=== PATIENT | male | born 1940 | race Caucasian/White ===

== ENCOUNTER 2019-09-30 16:45 | Inpatient (IN) | payer OTHER ==
[2019-09-30] MEDS ORDERED: NA CHLORIDE 0.9% 1,000 ML ONE ×2 (17:08→18:14)
[2019-09-30] MEDS ORDERED: PIPER/TAZO/NS 3.375gm 3.375 GM/100 ML BAG ONE (17:08)
[2019-09-30 17:25] LABS: Absolute Lymphocytes (CBC) 0.6 K/uL (0.7-4.9); Basophils % 0.3 % (0-1.3); Hematocrit 53.7 % (39.6-49.0); Lymphocytes % 4.6 % (15.3-44.8); MPV 8.7 fL (7.6-11.3); RBC Red Blood Cell Count 5.81 M/uL (4.33-5.43)
[2019-09-30 17:30] LABS: Urine Blood NEGATIVE (NEG); Urine Glucose NEGATIVE (NEG); Urine Protein NEGATIVE (NEG); Urine Specific Gravity 1.015 (1.005-1.030)
[2019-09-30 17:35] LABS: Arterial Blood Carboxyhemoglob 0.8 % (0-1.5); Blood Gas Oxyhemoglobin 90.4 % (94-97)
[2019-09-30 17:38] LABS: Protime INR 1.48
[2019-09-30 17:54] LABS: Urine Bacteria LOADED /HPF (NONE SEEN); Urine Culture Reflex Order NOT NEEDED; Urine RBC NONE SEEN /HPF (NONE SEEN)
[2019-09-30 18:06] LABS: Albumin 2.6 g/dL (3.4-5.0); Bilirubin Direct 0.4 mg/dL (0-0.2); Bilirubin Total 0.7 mg/dL (0.2-1.0); CKMB Creatine Kinase MB 5.5 ng/mL (0.3-3.6); Phosphorus 5.9 mg/dL (2.5-4.9); Troponin (Emerg Dept Use Only) 0.05 ng/mL (0.0-0.045); Uric Acid 11.9 mg/dL (3.5-7.2)
[2019-09-30 18:10] LABS: Potassium 5.9 mmol/L (3.5-5.1)
[2019-09-30] MEDS ORDERED: ALBUTEROL 2.5 MG/3 ML NEB SOL ONE (18:14)
--- NOTE | 2019-09-30 18:24 | RAD REPORT ---
EXAM DESCRIPTION: CT - Head Brain Wo Cont - 09/30/2019 6:16 pm CLINICAL HISTORY: Declining state, altered mental status COMPARISON: None. TECHNIQUE: Axial 5 mm thick images of the head were obtained without IV contrast. All CT scans are performed using dose optimization technique as appropriate and may include automated exposure control or mA/KV adjustment according to patient size. FINDINGS: No intracranial hemorrhage, mass, edema or shift of mid-line structures. No acute infarcti on changes seen. Moderate severity atrophy and chronic ischemic changes are present. Ventricles are i n proportion to volume loss. Artifact is present from cochlear device or similar neurointerventional device. Arterial calcifications are present. The mastoid air cells are clear. Postsurgical changes ar e noted to the left side mastoid air cells. No acute bony findings. IMPRESSION: Negative non-contrast CT head examination for acute intracranial finding. Moderate atrophy and chronic ischemic change.
--- NOTE | 2019-09-30 18:29 | RAD REPORT ---
EXAM DESCRIPTION: CT - Chest Abd Pelvis Wo Con - 09/30/2019 6:16 pm CLINICAL HISTORY: fall 3 months ago COMPARISON: No comparisons TECHNIQUE: During dynamic enhancement using 100 milliliters nonionic IV contrast, axial 5 millimeter thick images of the chest, abdomen and pelvis were obtained. Biphasic technique was utilized through the abdomen. No oral contrast. All CT scans are performed using dose optimization technique as appropriate and may include automated exposure control or mA/KV adjustment according to patient size. FINDINGS: A 2.2 centimeter spiculated mass is present in the posterior left apex. Atelectasis is pre sent along the posterior aspect of the left upper lobe. Bilateral posteromedial lung parenchymal opac ification present from atelectasis and/ or infiltrate. No pneumothorax or pleural effusion. No chest wall mass or abnormal axillary lymphadenopathy seen. Mediastinal and hilar regions show no mass or lymphadenopathy. No cardiomegaly. Coronary artery calcifications are present. Aortic calcifications are present. In the posterior right lobe of the liver a rounded -2009 centimeter low-density mass is present. Ma ss is not fully assessed in the absence of contrast. A malignancy would be the primary consideration given the overall patient ability. A giant hemangioma would be possible. No other focal liver lesions seen. Spleen and pancreas show no suspicious findings. Gallbladder and biliary tree are normal. Symmetric renal function is seen with no hydronephrosis, mass or other significant finding. Minimall y complex right renal cyst is present. Right adrenal gland is normal. An enlarged lobulated left adre nal gland is present 3.5 cm in size. Urinary bladder is contracted around a Villanueva catheter. No dilated bowel loops or focal ball bowel wall thickening. No free air, free fluid or inflammatory stranding. No hernia, mass or bulky lymphadenopathy. No significant bone or vascular finding. Prominent bony degenerative changes are present. IMPRESSION: Approximately -2009 centimeter rounded mass filling posterior right lobe liver. Malign juan carlos is the diagnosis of exclusion. A giant hemangioma is possible. No prior imaging is available. Posteromedial lower lung field bilateral opacification from infiltrate and/ or atelectasis. A spiculated 2.2 centimeter mass is present in the posterior left apex. No abnormal mediastinal, hilar, abdominal or pelvic lymphadenopathy. Enlarged lobulated left adrenal gland. CT abdomen and pelvis imaging shows no significant or suspicious finding.
[2019-09-30 19:12] LABS: Blood Morphology Comment NOT SEEN (NOT SEEN); Platelet Estimate ADEQ
--- NOTE | 2019-09-30 19:20 | RAD REPORT ---
EXAM DESCRIPTION: RAD - Chest Single View - 09/30/2019 5:32 pm CLINICAL HISTORY: Shortness of breath COMPARISON: None. TECHNIQUE: AP portable chest image was obtained 1728 hours . FINDINGS: Fibrotic lung changes are evident. Skin fold artifact overlies the lateral right chest. Bi lateral medial lung base opacification is present. This could be infiltrate or more likely atelectasi s. Failure and volume overload are not suspected. Defibrillator is in place. Heart and vasculature ar e normal. No measurable pleural effusion and no pneumothorax. No acute bony abnormality seen. No acut e aortic findings suspected. IMPRESSION: Bilateral medial lung base opacification favored to be atelectasis.
[2019-09-30] MEDS ORDERED: ONDANSETRON 4 MG/2 ML VIAL IV PRN (19:54)
[2019-09-30] MEDS ORDERED: ACETAMINOPHEN 500 MG TAB PO PRN (19:54)
--- NOTE | 2019-09-30 20:10 | ER ---
[facility] Name: Leroy Santiago Age: 78 yrs Sex: Male : 1940 Arrival Date: 09/30/2019 Time: 16:48 Bed 25 Private MD: Diagnosis: Acute kidney failure;Urinary tract infection, site not specified;Liver disorders in diseases classified elsewhere-Mass;Elevated white blood cell count Presentation: 09/30 16:50 Presenting complaint: EMS states: PATIENT WAS JUST RECENTLY ADMITTED IN THE FACILITY rv AND IS NOT EATING OR DRINKING FOR FOUR DAYS NOW. WITH ABNORMAL LABS. Transition of care: [facility]. Onset of symptoms was September 25, 2019 at 08:00. Risk Assessment: Do you want to hurt yourself or someone else? Patient reports no desire to harm self or others. Initial Sepsis Screen: Does the patient meet any 2 criteria? Altered Mental Status. No. Patient's initial sepsis screen is negative. Care prior to arrival: None. 16:50 Method Of Arrival: EMS: [facility] rv 16:50 Acuity: MIKE 2 rv 17:46 Initial Sepsis Screen: Does the patient have a suspected source of infection?. rv Historical: - Allergies: 17:41 Sulfa (Sulfonamide Antibiotics); rv - PMHx: 17:41 Hypertension; Anemia; BPH; GERD; PRIMARY RESPIRATORY TUBERCULOSIS; rv - PSHx: 17:41 PACEMAKER PLACEMENT; rv - Immunization history:: Adult Immunizations up to date. - Social history:: Smoking status: Patient/guardian denies using tobacco. - Ebola Screening: : No symptoms or risks identified at this time. Screenin:44 Abuse screen: Denies threats or abuse. Denies injuries from another. Nutritional rv screening: No deficits noted. Tuberculosis screening: No symptoms or risk factors identified. Fall Risk None identified. Assessment: 17:41 General: Appears ill, Behavior is quiet. Pain: Complains of pain in right leg. Neuro: rv Level of Consciousness is awake, Oriented to none. Cardiovascular: Patient's skin is warm and dry. Cardiovascular: Rhythm is sinus rhythm. Respiratory: Airway is patent Respiratory effort is shallow. GI: Parent/caregiver reports the patient having anorexia. Derm: Skin with poor turgor. Musculoskeletal: Range of motion: limited in left hip, left knee, right hip and right knee. 19:33 Reassessment: failed attempts to get blood specimen by labor arbitrator hearing office. rv 19:34 Reassessment: Myra talked to the family,. updated on the results of diagnostics and rv plan of care. Vital Signs: 17:29 BP 111 / 90; Pulse 70; Resp 19; Temp 100.1(R); Pulse Ox 95% 6 lpm ; Weight 90.72 kg; rv 17:56 BP 112 / 57; Pulse 60; Resp 17; Temp 99.5(C); Pulse Ox 100% on 5 lpm NC; rv 18:34 BP 112 / 52; Pulse 60; Resp 16; Temp 98.2(C); Pulse Ox 98% 5 lpm ; rv 19:00 BP 97 / 67; Pulse 60; Resp 17; Pulse Ox 95% on 5 lpm NC; rv 19:37 BP 108 / 72; Pulse 62; Resp 17; Temp 98.1; Pulse Ox 95% on Nebulizer Mask; rv 19:41 Pulse Ox 97% on Nebulizer Mask; rv ED Course: 16:48 Patient arrived in ED. rv 16:51 Myra Moore FNP-C is PHCP. snw 16:51 Ayo Abad MD is Attending Physician. snw 17:00 Initial lab(s) drawn, by oh, sent to lab. Inserted saline lock: 20 gauge in left em antecubital area, using aseptic technique. Blood collected. 17:00 First set of blood cultures drawn by ED staff. rv 17:29 Triage completed. rv 17:34 Chest Single View XRAY In Process Unspecified. EDMS 17:35 Second set of blood cultures drawn. Inserted saline lock: 20 gauge in right wrist, rv using aseptic technique. Blood collected. 17:44 Arm band placed on right wrist. Patient placed in the treatment room, Patient notified rv of wait time. 17:46 Patient has correct armband on for positive identification. Bed in low position. Call rv light in reach. Side rails up X2. Adult w/ patient. surveillance system monitor on. Pulse ox on. NIBP on. VÁSQUEZ TEMP. 17:47 Thien Handy, RN is Primary Nurse. rv 18:17 CT Head Brain wo Cont In Process Unspecified. EDMS 18:17 CT Chest Abdomen Pelvis W/O Contrast In Process Unspecified. EDMS 19:24 Ayo Armando MD is Hospitalizing Provider. snw Administered Medications: 17:05 Drug: NS 0.9% 1000 ml Route: IV; Rate: 125 ml/hr; Site: left antecubital; em 19:44 Follow up: IV Status: Infusion continued upon admission rv 17:47 Drug: Zosyn 3.375 grams {Note: k.} Route: IVPB; Infused Over: 60 mins; Site: left rv antecubital; 19:43 Follow up: IV Status: Completed infusion rv 18:34 Drug: Albuterol 2.5 mg Route: Inhalation; rv 18:35 Drug: NS 0.9% 1000 ml Route: IV; Rate: 1 bolus; Site: left antecubital; rv 19:43 Follow up: IV Status: Completed infusion; IV Intake: 1000ml rv 19:00 Drug: Albuterol 2.5 mg Route: Inhalation; rv 19:30 Drug: Albuterol 2.5 mg Route: Inhalation; rv Intake: 19:43 IV: 1000ml; Total: 1000ml. rv Outcome: 19:27 Decision to Hospitalize by Provider. snw 21:38 Patient left the ED. mw Signatures: Dispatcher [employer] Zara Cortés RN RN Myra Moore, PET SUPPLIES SALESPERSON-C PET SUPPLIES SALESPERSON-Yann Alexandre, RN RN Thien Handy RN RN rv
--- NOTE | 2019-09-30 20:11 | EDPHYS ---
Physician Documentation [facility] Name: Leroy Santiago Age: 78 yrs Sex: Male : 1940 Arrival Date: 09/30/2019 Time: 16:48 Bed 25 Private MD: ED Physician Ayo Abad HPI: 09/30 17:25 This 78 yrs old Male presents to ER via Unassigned with complaints of snw declining state. 17:25 Pt recently moved to different [place] second to deconditioning and decline at previous [place] snw since .. 17:54 Onset: The symptoms/episode began/occurred gradually, 3 month(s) ago, and became worse snw 1 week(s) ago. Severity of symptoms: At their worst the symptoms were moderate. The patient has not experienced similar symptoms in the past. seen at [facility] per MD s/p change in NH last week, labs done yesterday, WBC elevated, Creatinine elevated. Pt "in position" for a few weeks per family member observation. Historical: - Allergies: 17:41 Sulfa (Sulfonamide Antibiotics); rv - PMHx: 17:41 Hypertension; Anemia; BPH; GERD; PRIMARY RESPIRATORY TUBERCULOSIS; rv - PSHx: 17:41 PACEMAKER PLACEMENT; rv - Immunization history:: Adult Immunizations up to date. - Social history:: Smoking status: Patient/guardian denies using tobacco. - Ebola Screening: : No symptoms or risks identified at this time. ROS: 17:57 Eyes: Negative for injury, pain, redness, and discharge, ENT: Negative for injury, snw pain, and discharge, Neck: Negative for injury, pain, and swelling. 17:57 Respiratory: Negative for shortness of breath, cough, wheezing, and pleuritic chest pain, Abdomen/GI: Negative for abdominal pain, nausea, vomiting, diarrhea, and constipation, Back: Negative for injury and pain, : Negative for injury, bleeding, discharge, and swelling, MS/Extremity: Negative for injury and deformity, Skin: Negative for injury, rash, and discoloration. 17:57 Constitutional: Positive for body aches, malaise, poor PO intake. 17:57 Cardiovascular: Positive for pacemaker. 17:57 Neuro: Positive for declining state. Exam: 17:58 Head/Face: Normocephalic, atraumatic. Eyes: Pupils equal round and reactive to light, snw extra-ocular motions intact. Lids and lashes normal. Conjunctiva and sclera are non-icteric and not injected. Cornea within normal limits. Periorbital areas with no swelling, redness, or edema. 17:58 Neck: Trachea midline, no thyromegaly or masses palpated, and no cervical lymphadenopathy. Supple, full range of motion without nuchal rigidity, or vertebral point tenderness. No Meningismus. Chest/axilla: Normal chest wall appearance and motion. Nontender with no deformity. No lesions are appreciated. 17:58 Abdomen/GI: Soft, non-tender, with normal bowel sounds. No distension or tympany. No guarding or rebound. No evidence of tenderness throughout. Back: No spinal tenderness. No costovertebral tenderness. Full range of motion. Skin: Warm, dry with normal turgor. Normal color with no rashes, no lesions, and no evidence of cellulitis. MS/ Extremity: Pulses equal, no cyanosis. Neurovascular intact. Full, normal range of motion. 17:58 Constitutional: The patient appears awake, frail. 17:58 ENT: Mouth: Oral mucosa: dry, Voice: not speaking at this time. 17:58 Cardiovascular: Rate: normal, Heart sounds: normal, paced rhythm. 17:58 Respiratory: Respirations: shallow respirations, that is moderate, Breath sounds: decreased breath sounds, that are moderate, Spo2 on 2L O2 per NC, 72%, increased O2 to 5L, ABG ordered. 17:58 Neuro: Orientation: to person, Mentation: unable to follow commands, Memory: unable to test, Motor: Gait: not tested. seizure activity, is not displayed by the patient. Vital Signs: 17:29 BP 111 / 90; Pulse 70; Resp 19; Temp 100.1(R); Pulse Ox 95% 6 lpm ; Weight 90.72 kg; rv 17:56 BP 112 / 57; Pulse 60; Resp 17; Temp 99.5(C); Pulse Ox 100% on 5 lpm NC; rv 18:34 BP 112 / 52; Pulse 60; Resp 16; Temp 98.2(C); Pulse Ox 98% 5 lpm ; rv 19:00 BP 97 / 67; Pulse 60; Resp 17; Pulse Ox 95% on 5 lpm NC; rv 19:37 BP 108 / 72; Pulse 62; Resp 17; Temp 98.1; Pulse Ox 95% on Nebulizer Mask; rv 19:41 Pulse Ox 97% on Nebulizer Mask; rv MDM: 17:03 Patient medically screened. snw 19:22 Data reviewed: vital signs, nurses notes. Data interpreted: Pulse oximetry: on 2L(s) snw per nasal canula, is 71 %. Interpretation: hypoxia. Plan: O2 by NC applied. Arterial blood gas: pH: 7.388, PO2: 67.3, PCO2: 35.3, HCO3: 20.8, Oxygen saturation: 92, Oxygen: 5L(s) per nasal canula. Counseling: I had a detailed discussion with the patient and/or guardian regarding: the historical points, exam findings, and any diagnostic results supporting the discharge/admit diagnosis, lab results, radiology results, the need for further work-up and treatment in the hospital. Physician consultation: Ayo Armando MD was called at 19:24, was contacted at 19:24, regarding admission, to the telemetry unit. 09/30 17:02 Order name: ABG; Complete Time: 17:49 snw 09/30 17:02 Order name: D-Dimer; Complete Time: 17:49 snw 09/30 17:02 Order name: Urine Culture snw 09/30 17:02 Order name: T\\T\\S; Complete Time: 18:26 snw 09/30 17:02 Order name: Basic Metabolic Panel; Complete Time: 18:26 snw 09/30 17:02 Order name: Blood Culture Adult (2) snw 09/30 17:02 Order name: CBC with Diff; Complete Time: 19:15 snw 09/30 17:02 Order name: Ckmb; Complete Time: 18:26 snw 09/30 17:02 Order name: CPK; Complete Time: 18:26 snw 09/30 17:02 Order name: Lactate; Complete Time: 17:52 snw 09/30 17:02 Order name: LFT's; Complete Time: 18:26 snw 09/30 17:02 Order name: Lipase; Complete Time: 18:26 snw 09/30 17:02 Order name: Procalcitonin; Complete Time: 18:26 snw 09/30 17:02 Order name: Protime (+inr); Complete Time: 17:49 snw 09/30 17:02 Order name: Ptt, Activated; Complete Time: 17:49 snw 09/30 17:02 Order name: Troponin (emerg Dept Use Only); Complete Time: 18:26 snw 09/30 17:02 Order name: Urine Microscopic Only; Complete Time: 18:02 snw 09/30 17:02 Order name: Uric Acid; Complete Time: 18:26 snw 09/30 17:02 Order name: LDH; Complete Time: 18:26 snw 09/30 17:02 Order name: Phosphorus; Complete Time: 18:26 snw 09/30 17:07 Order name: Hepatitis Panel snw 09/30 17:24 Order name: Urine Dipstick--Ancillary (enter results); Complete Time: 17:45 09/30 17:28 Order name: Glucose, Ancillary Testing; Complete Time: 17:45 EDMS 09/30 18:03 Order name: ABO/RH no charge; Complete Time: 18:26 EDVT 09/30 19:12 Order name: Manual Differential; Complete Time: 19:15 EDMS 09/30 20:03 Order name: Urinalysis EDVT 09/30 20:03 Order name: Basic Metabolic Panel EDVT 09/30 20:03 Order name: Basic Metabolic Panel EDVT 09/30 20:03 Order name: Comprehensive Metabolic Panel EDVT 09/30 20:03 Order name: Comprehensive Metabolic Panel EDVT 09/30 17:02 Order name: Chest Single View XRAY; Complete Time: 19:28 snw 09/30 17:02 Order name: Accucheck; Complete Time: 17:24 snw 09/30 17:02 Order name: Cardiac monitoring; Complete Time: 17:24 snw 09/30 17:02 Order name: EKG - Nurse/Tech; Complete Time: 17:24 snw 09/30 17:07 Order name: CT Head Brain wo Cont; Complete Time: 18:36 snw 09/30 17:08 Order name: CT Chest Abdomen Pelvis W/O Contrast; Complete Time: 18:36 snw 09/30 20:02 Order name: CONS Physician Consult EDMS 09/30 20:03 Order name: Renal EDMS 09/30 20:03 Order name: Creatine Phosphokinase EDMS 09/30 20:03 Order name: Creatine Phosphokinase EDMS 09/30 20:03 Order name: Creatine Phosphokinase EDMS 09/30 20:03 Order name: Creatine Phosphokinase EDMS 09/30 20:03 Order name: Lactate EDMS 09/30 20:03 Order name: Lactate EDMS 09/30 20:03 Order name: Lipid Profile EDMS 09/30 20:03 Order name: Lipid Profile EDMS 09/30 20:03 Order name: Magnesium EDMS 09/30 20:03 Order name: Magnesium EDMS 09/30 20:03 Order name: Phosphorus EDMS 09/30 20:03 Order name: Phosphorus EDMS 09/30 20:03 Order name: NT PRO-BNP EDMS 09/30 20:03 Order name: NT PRO-BNP EDMS 09/30 20:03 Order name: Troponin I EDMS 09/30 20:03 Order name: Troponin I EDMS 09/30 20:04 Order name: Troponin I EDMS 09/30 20:04 Order name: Chem 7; Complete Time: 20:41 snw 09/30 20:04 Order name: Troponin I EDMS 09/30 20:09 Order name: Renal Ultrasound-Complete EDMS 09/30 17:02 Order name: IV Saline Lock - Large Bore; Complete Time: 17:24 snw 09/30 17:02 Order name: Labs collected and sent; Complete Time: 17:24 snw 09/30 17:02 Order name: O2 Per Protocol; Complete Time: 17:24 snw 09/30 17:02 Order name: O2 Sat Monitoring; Complete Time: 17:24 snw 09/30 17:02 Order name: Urine Dipstick-Ancillary (obtain specimen); Complete Time: 17:23 snw 09/30 17:02 Order name: Villanueva: criticore; Complete Time: 17:23 snw 09/30 19:37 Order name: Misc. Order: repeat Chem 7 post NS bolus and nebs x 3; Complete Time: 21:22 snw Administered Medications: 17:05 Drug: NS 0.9% 1000 ml Route: IV; Rate: 125 ml/hr; Site: left antecubital; em 19:44 Follow up: IV Status: Infusion continued upon admission rv 17:47 Drug: Zosyn 3.375 grams {Note: k.} Route: IVPB; Infused Over: 60 mins; Site: left rv antecubital; 19:43 Follow up: IV Status: Completed infusion rv 18:34 Drug: Albuterol 2.5 mg Route: Inhalation; rv 18:35 Drug: NS 0.9% 1000 ml Route: IV; Rate: 1 bolus; Site: left antecubital; rv 19:43 Follow up: IV Status: Completed infusion; IV Intake: 1000ml rv 19:00 Drug: Albuterol 2.5 mg Route: Inhalation; rv 19:30 Drug: Albuterol 2.5 mg Route: Inhalation; rv Disposition: 09/30/19 19:27 Hospitalization ordered by Ayo Armando for Inpatient Admission. Preliminary diagnosis are Acute kidney failure, Urinary tract infection, site not specified, Liver disorders in diseases classified elsewhere - Mass, Elevated white blood cell count. - Bed requested for Intensive Care Unit. - Status is Inpatient Admission. mw - Condition is Fair. - Problem is new. - Symptoms are unchanged. UTI on Admission? Yes Addendum: 10/11/2019 21:35 Co-signature as Attending Physician, Ayo Abad MD. m a2 Signatures: Dispatcher [employer] EDVT aZra Ruelas RN RN mw Therrien, Shelly, MONUMENT STONECUTTER-C MONUMENT STONECUTTER-Csnw Yann Britt RN RN Tai Taylor, MONUMENT STONECUTTER-C MONUMENT STONECUTTER-Cla1 Ayo Abad MD MD [facility] Thien Handy RN RN rv Corrections: (The following items were deleted from the chart) 09/30 21:00 19:27 Hospitalization Ordered by Ayo Armando MD for Inpatient Admission. Preliminary mw diagnosis is Acute kidney failure; Urinary tract infection, site not specified; Liver disorders in diseases classified elsewhere - Mass; Elevated white blood cell count. Bed requested for Telemetry/MedSurg (Inpatient). Status is Inpatient Admission. Condition is Fair. Problem is new. Symptoms are unchanged. UTI on Admission? Yes. snw 21:28 21:00 09/30/2019 19:27 Hospitalization Ordered by Ayo Armando MD for Inpatient la1 Admission. Preliminary diagnosis is Acute kidney failure; Urinary tract infection, site not specified; Liver disorders in diseases classified elsewhere - Mass; Elevated white blood cell count. Bed requested for Intensive Care Unit. Status is Inpatient Admission. Condition is Fair. Problem is new. Symptoms are unchanged. UTI on Admission? Yes. mw 21:38 21:28 09/30/2019 19:27 Hospitalization Ordered by Ayo Armando MD for Inpatient Admission. Preliminary diagnosis is Acute kidney failure; Urinary tract infection, site not specified; Liver disorders in diseases classified elsewhere - Mass; Elevated white blood cell count. Bed requested for Intensive Care Unit. Status is Inpatient Admission. Condition is Fair. Problem is new. Symptoms are unchanged. UTI on Admission? Yes. la1
[2019-09-30 20:39] LABS: Potassium 5.6 mmol/L (3.5-5.1)
[2019-09-30] MEDS: NA CHLORIDE 0.9% 250 ML IV SCH (21:00)
[2019-09-30] MEDS: NA CHLORIDE 0.9% 1,000 ML IV SCH (22:42)
[2019-10-01] MEDS: NA CHLORIDE 0.9% 250 ML IV SCH ×2 (02:58→09:00)
[2019-10-01 06:23] LABS: Albumin 2.1 g/dL (3.4-5.0); Bilirubin Total 0.7 mg/dL (0.2-1.0); Potassium 4.9 mmol/L (3.5-5.1); Protein, Total 6.6 g/dL (6.4-8.2); Troponin I 0.05 ng/mL (0.0-0.045)
--- NOTE | 2019-10-01 08:36 | P.CNS ---
Date of Consult: 10/01/19 Reason for Consult: This spiculated mass in the left upper lobe Chief Complaint: Failure to thrive History of Present Illness: Patient is 79 years of age was admitted to the hospital failure to thrive not eating and drinking altered acute on chronic renal failure possible sepsis patient has right-sided hemiplegia has cochlear implants his communicating with the nurses as been eating and drinking Allergies Sulfa (Sulfonamide Antibiotics) Allergy (Verified 09/30/19 22:30) Hives/Rash Home Medications: Allopurinol 100 mg PO DAILY 09/30/19 Amiloride HCl 10 mg PO DAILY 09/30/19 Amiodarone HCl [Pacerone] 100 mg PO BID 09/30/19 Amlodipine [Norvasc] 5 mg PO BEDTIME 09/30/19 Apixaban [Eliquis] 2.5 mg PO BID 09/30/19 Atorvastatin Calcium [Lipitor] 10 mg PO BEDTIME 09/30/19 Furosemide 80 mg PO BID 09/30/19 Gabapentin 300 mg PO DAILY 09/30/19 Gabapentin [Gralise] 600 mg PO BEDTIME 09/30/19 Hydrocodone Bit/Acetaminophen [Hydrocodon-Acetaminophn 10-325] 1 each PO Q8H 10/19 Omeprazole 20 mg PO DAILY 09/30/19 Potassium Chloride 20 meq PO DAILY 09/30/19 Tamsulosin [Flomax] 0.4 mg PO BEDTIME 09/30/19 Tizanidine [Zanaflex] 4 mg PO TID 09/30/19 - Past Medical/Surgical History Diabetic: No -: HTN -: Anemia -: BPH -: Primary TB -: Atrial fibrillation -: Pacemaker/defibrillator -: abd Sx - Family History Father Medical History: Heart disease - Social History Alcohol use: No CD- Drugs: No Caffeine use: No Place of Residence: [facility] Review of Systems is unable to be obtained Physical Examination Temp Pulse Resp BP Pulse Ox 96.6 F L 60 15 94/36 L 97 10/01/19 04:00 10/01/19 04:00 10/01/19 04:00 10/01/19 04:00 10/01/19 04:00 General: Alert, Cachectic, Other (Unable to communicate) Respiratory: Clear to auscultation bilaterally, Diminished Cardiovascular: No edema, Regular rate/rhythm, Normal S1 S2 Gastrointestinal: Normal bowel sounds, Soft and benign Musculoskeletal: No clubbing, No swelling Integumentary: No rashes, No breakdown Laboratory Data (last 24 hrs) 09/30/19 17:00: WBC 12.4 H D, Hgb 17.9, Hct 53.7 H, Plt Count 335 09/30/19 17:00: Sodium 136, Potassium 5.9 H*, BUN 132 H, Creatinine 3.46 H, Glucose 155 H, Uric Acid 11.9 H D, Phosphorus 5.9 H, Total Bilirubin 0.7, AST 120 H, ALT 37, Alkaline Phosphatase 311 H, Lipase 210 09/30/19 17:00: PT 17.2 H, INR 1.48, APTT 29.7 - Problems (1) Altered mental status Current Visit: Yes Status: Acute Plan: Patient is 79 years of age admitted with altered mental status acute on chronic renal failure CT scan the chest does show spiculated lesion in the left upper lobe possible consolidation in the left lower lobe patient has hypoxic for calcitonin level elevated possible mass in the liver 3+ gram-negative rods in the urine probably has cystitis urinary tract infection continue with IV fluids was likely is all prerenal and antibiotics await cultures he is hemodynamically stable not in any respiratory distress renal ultrasound pending Qualifiers: Altered mental status type: stupor Qualified Code(s): R40.1 - Stupor
[2019-10-01] MEDS ORDERED: ENOXAPARIN 30 MG/0.3 ML SQ SCH (09:00)
[2019-10-01] MEDS ORDERED: PANTOPRAZOLE 40MG TABLET PO SCH (09:00)
--- NOTE | 2019-10-01 09:08 | RAD REPORT ---
EXAM DESCRIPTION: RAD - Chest Single View - 10/01/2019 8:47 am CLINICAL HISTORY: Atelectasis, shortness of breath COMPARISON: CT study September 30, portable chest September 30 TECHNIQUE: AP portable chest image was obtained 0827 hours . FINDINGS: No new or progressive right lung field finding. Left base opacification is still present. Patchy stranding in the left midlung field is still present. This is partially obscured by the pacema ker/ defibrillator battery pack. CT showed spiculated nodule posterior left apex. This finding is not well visualized on chest exam. Heart and vasculature are normal. No pneumothorax. No measurable pleural effusion. No acute bony abn ormality seen. No acute aortic findings suspected. IMPRESSION: Mid and lower left lung field opacification is present showing no improvement from prior day CT imaging.
--- NOTE | 2019-10-01 09:34 | P.HP ---
Certification for Inpatient Patient admitted to: Inpatient With expected LOS: >2 Midnights Patient will require the following post-hospital care: None Practitioner: I am a practitioner with admitting privileges, knowledge of patient current condition, hospital course, and medical plan of care. Services: Services provided to patient in accordance with Admission requirements found in Title 42 Section 412.3 of the Code of Federal Regulations Patient History Date of Service: 09/30/19 Reason for admission: Failure to thrive History of Present Illness: Patient is a 79-year-old gentleman who came into the hospital with severe dehydration and acute kidney injury. Patient was recently discharged from the hospital, and according to family over the last 4 days has become more altered. He has had generalized weakness and is not eating anything. They brought him into the emergency room for evaluation. In the ER he has severe uremia and acute kidney injury. Patient was also found have a lung mass as well as a liver mass. Patient will be admitted to the hospital for further evaluation. Allergies Sulfa (Sulfonamide Antibiotics) Allergy (Verified 09/30/19 22:30) Hives/Rash Home Medications: Allopurinol 100 mg PO DAILY 09/30/19 Amiloride HCl 10 mg PO DAILY 09/30/19 Amiodarone HCl [Pacerone] 100 mg PO BID 09/30/19 Amlodipine [Norvasc] 5 mg PO BEDTIME 09/30/19 Apixaban [Eliquis] 2.5 mg PO BID 09/30/19 Atorvastatin Calcium [Lipitor] 10 mg PO BEDTIME 09/30/19 Furosemide 80 mg PO BID 09/30/19 Gabapentin 300 mg PO DAILY 09/30/19 Gabapentin [Gralise] 600 mg PO BEDTIME 09/30/19 Hydrocodone Bit/Acetaminophen [Hydrocodon-Acetaminophn 10-325] 1 each PO Q8H 10/19 Omeprazole 20 mg PO DAILY 09/30/19 Potassium Chloride 20 meq PO DAILY 09/30/19 Tamsulosin [Flomax] 0.4 mg PO BEDTIME 09/30/19 Tizanidine [Zanaflex] 4 mg PO TID 09/30/19 - Past Medical/Surgical History Has patient received pneumonia vaccine in the past: Yes Diabetic: No -: HTN -: Anemia -: BPH -: Primary TB -: Atrial fibrillation -: Pacemaker/defibrillator -: abd Sx - Family History Father Medical History: Heart disease - Social History Smoking Status: Former smoker Alcohol use: No CD- Drugs: No Caffeine use: No Place of Residence: [place] Review of Systems is unable to be obtained Physical Examination - Vital Signs Temperature: 96.6 F Blood Pressure: 94/36 Pulse: 60 Respirations: 15 Pulse Ox (%): 97 - Physical Exam General: Alert, In no apparent distress, Oriented x2 HEENT: Atraumatic, PERRLA, Mucous membr. moist/pink, EOMI, Sclerae nonicteric Neck: Supple, 2+ carotid pulse no bruit, No LAD, Without JVD or thyroid abnormality Respiratory: Diminished, Rhonchi/gurgles Cardiovascular: Regular rate/rhythm, Normal S1 S2, No murmurs Gastrointestinal: Normal bowel sounds, Soft and benign, Non-distended, No tenderness Musculoskeletal: No clubbing, No swelling, No tenderness Integumentary: No rashes Neurological: Normal tone, Sensation intact, Cranial nerves 3-12 intact, Normal affect, Abnormal gait, Abnormal speech, Abnormal strength Lymphatics: No axilla or inguinal lymphadenopathy - Studies Laboratory Data (last 24 hrs) 09/30/19 17:00: WBC 12.4 H D, Hgb 17.9, Hct 53.7 H, Plt Count 335 09/30/19 17:00: Sodium 136, Potassium 5.9 H*, BUN 132 H, Creatinine 3.46 H, Glucose 155 H, Uric Acid 11.9 H D, Phosphorus 5.9 H, Total Bilirubin 0.7, AST 120 H, ALT 37, Alkaline Phosphatase 311 H, Lipase 210 09/30/19 17:00: PT 17.2 H, INR 1.48, APTT 29.7 Assessment & Plan - Problems (Diagnosis) (1) Pneumonia Current Visit: Yes Status: Acute (2) Lung mass Current Visit: Yes Status: Acute (3) Liver mass Current Visit: Yes Status: Acute (4) MARIEL (acute kidney injury) Current Visit: Yes Status: Acute (5) Uremic encephalopathy Current Visit: Yes Status: Acute (6) Altered mental status Current Visit: Yes Status: Acute Qualifiers: Altered mental status type: stupor Qualified Code(s): R40.1 - Stupor - Plan 1. Continue with IV antibiotics 2. Awaiting sputum and blood culture 3. Repeat chest x-ray 4. CT scan reveals lung and liver mass 5. Pulmonary consultation & Nephrology consultation 6. Continue with nebs as needed 7. O2 per protocol 8. Continue with gentle hydration 9. Repeat labs including CBC and renal function in a.m. 10. GI and DVT prophylaxis Discharge Plan: Home Plan to discharge in: Greater than 2 days - Advance Directives Does patient have a Living Will: No Does patient have a Durable POA for Healthcare: No - Code Status/Comfort Care Code Status Assessed: Yes Code Status: Full Code Critical Care: No Time Spent Managing PTS Care (In Minutes): 45
[2019-10-01] MEDS: allopurinoL 100 MG TAB PO SCH (10:10)
[2019-10-01] MEDS: AMIODARONE HCL 200 MG TAB PO SCH ×2 (10:10→20:37)
[2019-10-01] MEDS: GABAPENTIN 300 MG CAP PO SCH ×2 (10:10→20:37)
[2019-10-01] MEDS: APIXABAN 2.5 MG TABLET PO SCH ×2 (10:12→20:38)
[2019-10-01] MEDS: CEFTRIAXONE/SWI 1gm 1 GM/10 ML SYR IV SCH (10:12)
[2019-10-01] MEDS: NA CHLORIDE 0.9% 1,000 ML IV SCH ×2 (10:13→19:44)
--- NOTE | 2019-10-01 12:17 | P.PN ---
Subjective Date of Service: 10/01/19 Primary Care Provider: alf Chief Complaint: Failure to thrive Subjective: Other (Still with some confusion. Patient with difficulty hearing) Physical Examination - Vital Signs Temperature: 96.6 F Blood Pressure: 107/40 Pulse: 60 Respirations: 17 Pulse Ox (%): 97 - Physical Exam General: Alert, Confused HEENT: Atraumatic, Other (Dry mucous membranes) Neck: Supple Respiratory: Crackles/rales (Crackles to the bases) Cardiovascular: Regular rate/rhythm (Paced rhythm) Gastrointestinal: Normal bowel sounds, Non-distended, No tenderness, No masses, No rebound, No guarding Musculoskeletal: Contractures Neurological: Other (Muscle wasting throughout.) - Studies Laboratory Data (last 24 hrs) 09/30/19 17:00: WBC 12.4 H D, Hgb 17.9, Hct 53.7 H, Plt Count 335 09/30/19 17:00: Sodium 136, Potassium 5.9 H*, BUN 132 H, Creatinine 3.46 H, Glucose 155 H, Uric Acid 11.9 H D, Phosphorus 5.9 H, Total Bilirubin 0.7, AST 120 H, ALT 37, Alkaline Phosphatase 311 H, Lipase 210 09/30/19 17:00: PT 17.2 H, INR 1.48, APTT 29.7 Medications List Reviewed: Yes Assessment & Plan Discharge Plan: Halfway Plan to discharge in: Greater than 2 days Physician Review Additional Text: Impression: Altered mental status secondary to toxic versus uremic encephalopathy complicated with bilateral pneumonia and UTI Acute on chronic renal failure stage II likely from dehydration and poor oral intake Abnormal CT showing spiculated 2.2 cm mass to the posterior left lung, mass to the posterior right right lobe of the liver, and enlarged lobulated left adrenal gland Atrial fibrillation on chronic anti coagulation therapy and pacemaker Difficulty hearing with cochlear implant Plan: Altered mental status secondary to toxic versus uremic encephalopathy complicated with bilateral pneumonia and UTI: Continue IV antibiotic therapy. Blood, urine cultures obtained. Continue IV fluid hydration. Pulmonology consulted. Will discuss further. Will need to discuss with family and patient concerning findings. Will need to readdress advanced directives. Patient likely not a candidate for treatment. Acute on chronic renal failure stage II likely from dehydration and poor oral intake: Continue IV fluid hydration. Nephrology consulted. Await further recommendation. Abnormal CT showing spiculated 2.2 cm mass to the posterior left lung, mass to the posterior right lobe of the liver, and enlarged lobulated left adrenal gland : Will discuss further with pulmonology. Patient likely not a candidate for workup or future treatment. Will need discuss with family about findings. Atrial fibrillation on chronic anti coagulation therapy and pacemaker: Restart amiodarone and Eliquis. Difficulty hearing with cochlear implant: Will monitor closely. Time Spent Managing Pts Care (In Minutes): 55
--- NOTE | 2019-10-01 18:45 | RAD REPORT ---
EXAM DESCRIPTION: US - Renal Ultrasound-Complete - 10/01/2019 6:28 pm CLINICAL HISTORY: Acute renal insufficiency COMPARISON: None. FINDINGS: The right kidney measures 9 cm with an increased echotexture. The patient's known right re nal cyst is not visualized on this examination The left kidney measures 9 cm with an increased echotexture. Hydronephrosis is not seen. No gross abnormality of bladder is seen. A Villanueva catheter is in place IMPRESSION: Increased renal echotexture consistent with parenchymal disease
[2019-10-01] MEDS: ATORVASTATIN 10 MG TAB PO SCH (20:37)
[2019-10-01] MEDS: TAMSULOSIN 0.4 MG SR CAP PO SCH (20:37)
--- NOTE | 2019-10-01 22:17 | P.PN ---
Subjective Date of Service: 10/01/19 [facility] Chief Complaint: Failure to thrive Subjective: New changes Pt with CKD baseline Cr 1.5, admitted with AMS and MARIEL found to have metastaic lesions Today still confused Cr slightly improving will reduce IVf rate family dont want to seek further w/u at this time Physical Examination - Vital Signs Temperature: 97.4 F Blood Pressure: 99/34 Pulse: 62 Respirations: 17 Pulse Ox (%): 94 - Physical Exam General: Confused HEENT: Atraumatic, Normocephalic Neck: Supple, Without JVD or thyroid abnormality Respiratory: Clear to auscultation bilaterally, Normal air movement Cardiovascular: No edema, Regular rate/rhythm, Normal S1 S2, No gallops, No rubs , No murmurs Gastrointestinal: Normal bowel sounds, Soft and benign, Non-distended, No ascites, No tenderness Musculoskeletal: No clubbing, No swelling Integumentary: No rashes Neurological: Other (confused ) - Studies Medications List Reviewed: Yes Assessment And Plan - Plan MARIEL on CKD III baseline Cr ~1.5 likely due to prerenal azotemia CT : no hydro Cont IVF, will reduce rate AFib on AC rate controlled AMS possibly due to metabol;ic encepahlopathy metastatic lesion family dont want seek further W/U at this time
[2019-10-02] MEDS: NA CHLORIDE 0.9% 1,000 ML IV SCH ×2 (02:00→04:51)
[2019-10-02 06:16] LABS: Magnesium 2.7 mg/dL (1.8-2.4); Potassium 3.9 mmol/L (3.5-5.1); Troponin I 0.07 ng/mL (0.0-0.045)
[2019-10-02 06:41] LABS: Absolute Lymphocytes (CBC) 0.4 K/uL (0.7-4.9); Basophils % 0.3 % (0-1.3); Hematocrit 40.3 % (39.6-49.0); Lymphocytes % 3.4 % (15.3-44.8); MPV 9.4 fL (7.6-11.3); RBC Red Blood Cell Count 4.35 M/uL (4.33-5.43)
--- NOTE | 2019-10-02 06:48 | EKG ---
Test Date: 2019-09-30 Test Time: 17:02:14 Training Designer: DOMINICK MEASUREMENT RESULTS: Intervals: Rate: 64 IN: 114 QRSD: 182 QT: 494 QTc: 509 [place]: P: 100 IN: 114 QRS: -88 T: 89 INTERPRETIVE STATEMENTS: Normal sinus rhythm Right bundle branch block Left anterior fascicular block Bifascicular block Left ventricular hypertrophy with repolarization abnormality Cannot rule out Inferior infarct (masked by fascicular block?), age undetermined Cannot rule out Anteroseptal infarct, age undetermined Abnormal ECG No previous ECG available for comparison Electronically Signed On 10-02-19 06:43:57 [employer] by Walt Penaloza
[2019-10-02] MEDS: allopurinoL 100 MG TAB PO SCH (08:08)
[2019-10-02] MEDS: CEFTRIAXONE/SWI 1gm 1 GM/10 ML SYR IV SCH (08:08)
[2019-10-02] MEDS: AMIODARONE HCL 200 MG TAB PO SCH ×2 (08:08→21:06)
[2019-10-02] MEDS: GABAPENTIN 300 MG CAP PO SCH ×2 (08:09→21:06)
[2019-10-02] MEDS: APIXABAN 2.5 MG TABLET PO SCH ×2 (08:10→21:07)
--- NOTE | 2019-10-02 08:55 | P.PN ---
Subjective Date of Service: 10/02/19 Primary Care Provider: intermediate Chief Complaint: Failure to thrive Subjective: Other (Overall stable.) Physical Examination - Vital Signs Temperature: 97.5 F Blood Pressure: 123/60 Pulse: 60 Respirations: 16 Pulse Ox (%): 95 - Physical Exam General: Alert, Other (Patient is sleeping in bed) Respiratory: Clear to auscultation bilaterally, Normal air movement Cardiovascular: Regular rate/rhythm Gastrointestinal: Normal bowel sounds, Soft and benign, Non-distended Integumentary: No tenderness/swelling, No erythema, No warmth, No cyanosis - Studies Microbiology Data (last 24 hrs): 09/30/19 17:10 Catheterized Urine [place] Count - Final >100,000 CFU/ML. 09/30/19 17:10 Catheterized Urine - Final Escherichia Coli Esbl 09/30/19 17:15 Blood - Blood Gram Stain - Final Medications List Reviewed: Yes Assessment & Plan Discharge Plan: [facility] Plan to discharge in: 48 Hours Physician Review Additional Text: Impression: Altered mental status secondary to toxic versus uremic encephalopathy complicated with bilateral pneumonia and UTI Acute on chronic renal failure stage II likely from dehydration and poor oral intake Abnormal CT showing spiculated 2.2 cm mass to the posterior left lung, mass to the posterior right right lobe of the liver, and enlarged lobulated left adrenal gland Atrial fibrillation on chronic anti coagulation therapy and pacemaker Difficulty hearing with cochlear implant Plan: Altered mental status secondary to toxic versus uremic encephalopathy complicated with bilateral pneumonia and UTI, urine culture positive for E coli- ESBL: Patient with E coli-ESBL. Will change IV antibiotic therapy to IV Merrem 1 g twice daily. Will order PICC line as the patient will require long- term IV antibiotic therapy for total of 1 week on Merrem starting today. Recheck chest x-ray. Will adjust IV fluids. Continue to wean off oxygen. Will discuss further with pulmonology. Case discussed at length with daughter yesterday concerning spiculated mass. Likely lung cancer with metastasis to the liver. Family does not desire any workup at this time. Advanced directives addressed. Family was to discuss further with other family members. Will need to readdress advanced directives. Likely back to the shelter on hospice. Anticipate back to the shelter likely in the next 2-3 days with clinical improvement. Acute on chronic renal failure stage II likely from dehydration and poor oral intake: IV fluid adjusted. Await further recommendations and changes by nephrology. Abnormal CT showing spiculated 2.2 cm mass to the posterior left lung, mass to the posterior right lobe of the liver, and enlarged lobulated left adrenal gland : Family does not want any workup. They understand in his condition would likely not do well with treatment. No further pursuit needed. Atrial fibrillation on chronic anti coagulation therapy and pacemaker: Continue amiodarone and Eliquis. Difficulty hearing with cochlear implant: Will monitor closely. Time Spent Managing Pts Care (In Minutes): 55
[2019-10-02] MEDS ORDERED: NACHLORIDE 0.45% 1,000 ML IV SCH (09:00)
[2019-10-02] MEDS ORDERED: Meropenem 1000 MG/VIAL IV SCH (09:00)
[2019-10-02] MEDS: NACHLORIDE 0.45% 1,000 ML IV SCH (13:34)
[2019-10-02] MEDS: Meropenem 1,000 MG in NA CHLORIDE 0.9% 100 ML IV SCH ×2 (13:35→21:05)
--- NOTE | 2019-10-02 20:21 | P.PN ---
Subjective Date of Service: 10/02/19 Primary Care Provider: [facility] Chief Complaint: Failure to thrive Subjective: Improving Pt with CKD baseline Cr 1.5, admitted with AMS and MARIEL found to have metastaic lesions Today more alert Cr improving Good UO will change fluid to 1/2 NS Physical Examination - Vital Signs Temperature: 98.2 F Blood Pressure: 124/32 Pulse: 64 Respirations: 18 Pulse Ox (%): 100 - Physical Exam General: Alert HEENT: Atraumatic Neck: Supple, Without JVD or thyroid abnormality Respiratory: Clear to auscultation bilaterally, Normal air movement Cardiovascular: No edema, Normal pulses, Regular rate/rhythm, Normal S1 S2, No gallops, No rubs, No murmurs Gastrointestinal: Normal bowel sounds, Soft and benign, Non-distended, No ascites, No tenderness Musculoskeletal: No clubbing, No swelling, No erythema Integumentary: No rashes - Studies Microbiology Data (last 24 hrs): 09/30/19 17:10 Catheterized Urine [place] Count - Final >100,000 CFU/ML. 09/30/19 17:10 Catheterized Urine - Final Escherichia Coli Esbl 09/30/19 17:15 Blood - Blood Gram Stain - Final Medications List Reviewed: Yes Assessment And Plan - Plan MARIEL on CKD III Cont to improve on IVF baseline Cr ~1.5 likely due to prerenal azotemia CT : no hydro will change fluid to 1/2 NS AFib on AC rate controlled AMS improving possibly due to metabolic encepahlopathy metastatic lesion family dont want seek further W/U at this time
[2019-10-02] MEDS: TAMSULOSIN 0.4 MG SR CAP PO SCH (21:06)
[2019-10-02] MEDS: ATORVASTATIN 10 MG TAB PO SCH (21:06)
[2019-10-03] MEDS: NACHLORIDE 0.45% 1,000 ML IV SCH ×2 (02:59→12:02)
[2019-10-03 05:18] VITALS: BMI 25.6
[2019-10-03 05:18] LABS: Absolute Lymphocytes (CBC) 0.5 K/uL (0.7-4.9); Basophils % 0.2 % (0-1.3); Hematocrit 43.4 % (39.6-49.0); Lymphocytes % 4.1 % (15.3-44.8); MPV 8.3 fL (7.6-11.3); RBC Red Blood Cell Count 4.63 M/uL (4.33-5.43)
[2019-10-03 05:34] LABS: Magnesium 2.4 mg/dL (1.8-2.4); Potassium 3.9 mmol/L (3.5-5.1); Troponin I 0.05 ng/mL (0.0-0.045)
[2019-10-03 06:56] LABS: Phosphorus 2.1 mg/dL (2.5-4.9)
[2019-10-03] MEDS: allopurinoL 100 MG TAB PO SCH (08:47)
[2019-10-03] MEDS: APIXABAN 2.5 MG TABLET PO SCH ×2 (08:47→20:21)
[2019-10-03] MEDS: AMIODARONE HCL 200 MG TAB PO SCH ×2 (08:47→20:21)
[2019-10-03] MEDS: GABAPENTIN 300 MG CAP PO SCH ×2 (08:47→20:21)
[2019-10-03] MEDS: Meropenem 1,000 MG in NA CHLORIDE 0.9% 100 ML IV SCH ×2 (08:48→20:30)
--- NOTE | 2019-10-03 13:27 | P.PN ---
Subjective Date of Service: 10/03/19 Primary Care Provider: group home Chief Complaint: Failure to thrive Subjective: Other (Stable) Physical Examination - Vital Signs Temperature: 98.3 F Blood Pressure: 135/41 Pulse: 60 Respirations: 16 Pulse Ox (%): 97 - Physical Exam General: Alert HEENT: Atraumatic Neck: Supple Respiratory: Clear to auscultation bilaterally, Normal air movement Cardiovascular: Normal pulses, Regular rate/rhythm Gastrointestinal: Normal bowel sounds, Soft and benign, Non-distended - Studies Microbiology Data (last 24 hrs): 09/30/19 17:10 Catheterized Urine [place] Count - Final >100,000 CFU/ML. 09/30/19 17:10 Catheterized Urine - Final Escherichia Coli Esbl Medications List Reviewed: Yes Assessment & Plan Discharge Plan: [facility] Plan to discharge in: 24 Hours Physician Review Additional Text: Impression: Altered mental status secondary to toxic versus uremic encephalopathy complicated with bilateral pneumonia and UTI Acute on chronic renal failure stage II likely from dehydration and poor oral intake Abnormal CT showing spiculated 2.2 cm mass to the posterior left lung, mass to the posterior right right lobe of the liver, and enlarged lobulated left adrenal gland Atrial fibrillation on chronic anti coagulation therapy and pacemaker Difficulty hearing with cochlear implant Plan: Altered mental status secondary to toxic versus uremic encephalopathy complicated with bilateral pneumonia and UTI, urine culture positive for E coli- ESBL: Patient with E coli-ESBL. Patient continues to do well. Patient now on IV meropenem. Patient will get PICC line today. [facility] in the next 24 hr. Will need to discuss with daughter about plan of care. Will also need to address advanced directives. Daughter has expressed that patient likely not a good candidate for workup of the lung mass. I would suspect hospice after treatment of UTI and pneumonia. Acute on chronic renal failure stage II likely from dehydration and poor oral intake: Await further recommendations and changes by nephrology. Abnormal CT showing spiculated 2.2 cm mass to the posterior left lung, mass to the posterior right lobe of the liver, and enlarged lobulated left adrenal gland : Family does not want any workup. They understand in his condition would likely not do well with treatment. No further pursuit needed. Atrial fibrillation on chronic anti coagulation therapy and pacemaker: Continue amiodarone and Eliquis. Difficulty hearing with cochlear implant: Will monitor closely. Time Spent Managing Pts Care (In Minutes): 55
--- NOTE | 2019-10-03 15:15 | RAD REPORT ---
EXAM DESCRIPTION: RAD - Chest Single View - 10/03/2019 2:52 pm CLINICAL HISTORY: PICC line placement COMPARISON: None. FINDINGS: Portable chest was obtained following placement of a right upper extremity PICC line. The catheter tip is in the mid SVC.
[2019-10-03] MEDS: TAMSULOSIN 0.4 MG SR CAP PO SCH (20:20)
[2019-10-03] MEDS: ATORVASTATIN 10 MG TAB PO SCH (20:21)
[2019-10-03 22:08] LABS: HBsAG Nonreactive (Nonreactive)
--- NOTE | 2019-10-04 03:49 | PN ---
Date of Progress Note: 10/03/2019 History Of Present Illness: Patient has history of chronic kidney disease stage 3. He developed acute kidney injury with nonoliguric urine output. Patient was started on IV fluids and renal function has stabilized. Patient was admitted for altered mental status and acute kidney injury. Urinalysis showed urinary tract infection. Patient has history of metastatic lesion and he refused further workup at this time for metastatic lesion. Patient had a CT scan of the abdomen and pelvis without contrast and it did not show hydronephrosis. Review of Systems: Denies fever, chills. Denies nausea, vomiting. Physical Examination: Lungs: Diminished breath sounds at bases. Heart: S1, S2. Abdomen: Soft, benign. Extremities: Slight edema. Laboratory Data: BUN 41, creatinine 1.2, sodium 142, potassium 3.9, chloride 113, CO2 of 23, and phosphorus 2.1. Phosphorus is improving from 5.0 to 2.1. Impression And Plan: Acute kidney injury. Renal function has improved over last 48 hours. Creatinine was up to 2.97 and BUN 117 and today lab work showed BUN 41, creatinine 1.20. Continue IV fluids. Monitor electrolytes. Patient is on half-normal saline. Sodium level is improving 146 to 142. Metastatic cancer and the patient refused further workup. EB/MODL Voice ID: [id number] Report ID: [id number] REJI
[2019-10-04 06:34] LABS: Absolute Lymphocytes (CBC) 0.5 K/uL (0.7-4.9); Basophils % 0.3 % (0-1.3); Hematocrit 39.9 % (39.6-49.0); Lymphocytes % 4.9 % (15.3-44.8); MPV 8.9 fL (7.6-11.3); Magnesium 2.4 mg/dL (1.8-2.4); Phosphorus 2.1 mg/dL (2.5-4.9); Potassium 3.9 mmol/L (3.5-5.1); RBC Red Blood Cell Count 4.24 M/uL (4.33-5.43)
[2019-10-04] MEDS: POTASS/SODIUM PHOSPHATE 1 PKT POWD.PACK PO SCH ×3 (07:00→09:00)
[2019-10-04] MEDS ORDERED: POTASSIUM CL SA 10 MEQ TAB PO ONE (08:00)
[2019-10-04] MEDS: Meropenem 1,000 MG in NA CHLORIDE 0.9% 100 ML IV SCH ×2 (08:00→20:36)
[2019-10-04] MEDS: APIXABAN 2.5 MG TABLET PO SCH ×2 (09:03→20:37)
[2019-10-04] MEDS: GABAPENTIN 300 MG CAP PO SCH ×2 (09:04→20:37)
[2019-10-04] MEDS: allopurinoL 100 MG TAB PO SCH (09:04)
[2019-10-04] MEDS: AMIODARONE HCL 200 MG TAB PO SCH ×2 (09:04→20:37)
--- NOTE | 2019-10-04 09:39 | P.DS ---
Admission Date: 09/30/19 Discharge Date: 10/04/19 Primary Care Provider: senior living Disposition: TRANSFER TO [facility] Discharge Condition: GOOD Reason for Admission: Failure to thrive Consultations: Nephrology-Dr. Zapata Pulmonary-Dr. Salas Procedures: CT head: FINDINGS: No intracranial hemorrhage, mass, edema or shift of mid-line structures. No acute infarction changes seen. Moderate severity atrophy and chronic ischemic changes are present. Ventricles are in proportion to volume loss. Artifact is present from cochlear device or similar neurointerventional device. Arterial calcifications are present. The mastoid air cells are clear. Postsurgical changes are noted to the left side mastoid air cells. No acute bony findings. IMPRESSION: Negative non-contrast CT head examination for acute intracranial finding. Moderate atrophy and chronic ischemic change. CT scan: FINDINGS: A 2.2 centimeter spiculated mass is present in the posterior left apex. Atelectasis is present along the posterior aspect of the left upper lobe. Bilateral posteromedial lung parenchymal opacification present from atelectasis and/ or infiltrate. No pneumothorax or pleural effusion. No chest wall mass or abnormal axillary lymphadenopathy seen. Mediastinal and hilar regions show no mass or lymphadenopathy. No cardiomegaly. Coronary artery calcifications are present. Aortic calcifications are present. In the posterior right lobe of the liver a rounded 09-2010 centimeter low- density mass is present. Mass is not fully assessed in the absence of contrast. A malignancy would be the primary consideration given the overall patient ability. A giant hemangioma would be possible. No other focal liver lesions seen. Spleen and pancreas show no suspicious findings. Gallbladder and biliary tree are normal. Symmetric renal function is seen with no hydronephrosis, mass or other significant finding. Minimally complex right renal cyst is present. Right adrenal gland is normal. An enlarged lobulated left adrenal gland is present 3.5 cm in size. Urinary bladder is contracted around a Villanueva catheter. No dilated bowel loops or focal ball bowel wall thickening. No free air, free fluid or inflammatory stranding. No hernia, mass or bulky lymphadenopathy. No significant bone or vascular finding. Prominent bony degenerative changes are present. IMPRESSION: Rounded mass filling posterior right lobe liver. Malignancy is the diagnosis of exclusion. A giant hemangioma is possible. No prior imaging is available. Posteromedial lower lung field bilateral opacification from infiltrate and/ or atelectasis. A spiculated 2.2 centimeter mass is present in the posterior left apex. No abnormal mediastinal, hilar, abdominal or pelvic lymphadenopathy. Enlarged lobulated left adrenal gland. CT abdomen and pelvis imaging shows no significant or suspicious finding. Renal scan: FINDINGS: The right kidney measures 9 cm with an increased echotexture. The patient's known right renal cyst is not visualized on this examination The left kidney measures 9 cm with an increased echotexture. Hydronephrosis is not seen. No gross abnormality of bladder is seen. A Villanueva catheter is in place IMPRESSION: Increased renal echotexture consistent with parenchymal disease Follow up chest x-ray: FINDINGS: No new or progressive right lung field finding. Left base opacification is still present. Patchy stranding in the left midlung field is still present. This is partially obscured by the pacemaker/ defibrillator battery pack. CT showed spiculated nodule posterior left apex. This finding is not well visualized on chest exam. Heart and vasculature are normal. No pneumothorax. No measurable pleural effusion. No acute bony abnormality seen. No acute aortic findings suspected. IMPRESSION: Mid and lower left lung field opacification is present showing no improvement from prior day CT imaging. Medical problem list: Altered mental status secondary to toxic encephalopathy complicated with bilateral pneumonia and UTI, culture positive for E coli-ESBL Acute on chronic renal failure stage II likely from dehydration and poor oral intake Abnormal CT showing spiculated 2.2 cm mass to the posterior left lung, mass to the posterior right right lobe of the liver, and enlarged lobulated left adrenal gland suspect lung cancer with metastasis Atrial fibrillation on chronic anti coagulation therapy and pacemaker Suspect chronic diastolic CHF History of hypertension BPH Hyperlipidemia Chronic pain Difficulty hearing with cochlear implant Brief History of Present Illness: 79-year-old male with multiple medical problems presented to the emergency room with poor intake, fever and altered mental status. Patient recently [facility] a [facility]. Patient found to have UTI with hilar pneumonia. Patient admitted for further evaluation and treatment. Hospital Course: Patient presented with poor intake and altered mental status. Patient found to have toxic encephalopathy related to bilateral pneumonia and UTI. Patient was treated with IV antibiotic therapy and IV fluids. Patient improved. Patient found to have E coli-ESBL. PICC line was required. At discharge patient will continue with IV meropenem 1 g twice daily for total of 2 weeks to treat both infections. Patient will return to the [facility] with a PICC line in place. Recommend to recheck chest x-ray in 2-4 weeks to monitor resolution. Recommend to recheck urine culture after treatment to make sure infection has been eradicated. If negative PICC line can be removed. Patient also found to have abnormal CT scan showing spiculated 2.2 cm mass to the posterior left lung. A mass to the posterior right lobe of the liver was noted along with an large lobulated left adrenal gland. Findings likely lung cancer with metastasis. Pulmonology was consulted. Pulmonology recommended no further investigation and intervention due to his chronic medical conditions and age. This was addressed in detail with family. Patient likely not a good candidate for further evaluation and treatment was addressed with family. Family agrees. Patient would likely benefit with hospice after treatment of infection and pneumonia. Family is to further discuss with other family members. This can be further addressed at the usp. Will recommend that usp discuss advanced directives with family as well. Patient with acute on chronic renal failure stage 4 due to dehydration and poor oral intake. Patient received IV fluids with improvement. Renal ultrasound shows chronic disease. Renal function back to stage 4. Nephrology was consulted. Recommend no further use of nonsteroidal anti-inflammatories medications will need to be renally dosed. Recommend to recheck lab-BMP in 1-2 weeks to monitor his progress. At discharge patient will continue with allopurinol 100 mg daily. Patient with underlying atrial fibrillation on chronic anti coagulation therapy , history of pacemaker defibrillator, hypertension and likely underlying diastolic CHF. Patient was previously on blood pressure medication-Norvasc, Amiloride, and Lasix. Blood pressures have been stable without medication here in the hospital. At discharge, for his hypertension will recommend to discontinue Amiloride 10 mg daily and Norvasc 5 mg daily. Recommend to monitor blood pressures closely. If blood pressures remain above 140/90 then will need to consider adding back blood pressure medication but would recommend adding MENG -inhibitor instead. At discharge, for his likely underlying diastolic CHF, will recommend to discontinue Lasix 80 mg 1 pill twice daily. Will recommend to restart at Lasix 40 mg daily instead. Will also recommend 1500 cc per day fluid restriction and low-salt diet. Will recommend to monitor daily weight, if weight increases by more than 5 lb then medication may need to be further adjusted. This can be done with the help of usp physician or cardiology. For his atrial fibrillation patient may continue with amiodarone 100 mg twice daily and Eliquis 2.5 mg twice daily for chronic anti coagulation therapy. Recommend follow up with cardiology as directed. Patient with underlying BPH. At discharge patient will continue with Flomax 0.4 mg daily. Patient with underlying hyperlipidemia. At discharge he will continue with Lipitor 10 mg daily. Patient with chronic pain. At discharge he will continue with gabapentin 300 mg daily and gabapentin 600 mg at night. Patient will also continue with [place] as directed. Patient also takes Zanaflex as needed for muscle spasm. Further adjustment can be done by the [facility] physician. Patient with difficulty hearing with cochlear implant in place. Vital Signs/Physical Exam: Temp Pulse Resp BP Pulse Ox 97.1 F 60 16 119/57 L 95 10/04/19 08:00 10/04/19 08:00 10/04/19 08:00 10/04/19 08:00 10/04/19 08:00 General: Alert, Other (aphasia) Neck: Supple Respiratory: Clear to auscultation bilaterally Cardiovascular: Normal pulses, Regular rate/rhythm Gastrointestinal: Normal bowel sounds, Soft and benign, Non-distended, No ascites Musculoskeletal: Contractures, Other (Muscle wasting to the upper and lower extremity) Neurological: Other Laboratory Data at Discharge: WBC 10.2 K/uL (4.3-10.9) D 10/04/19 05:20 Hgb 13.4 g/dL (13.6-17.9) L 10/04/19 05:20 Hct 39.9 % (39.6-49.0) 10/04/19 05:20 Plt Count 254 K/uL (152-406) 10/04/19 05:20 PT 17.2 SECONDS (9.5-12.5) H 09/30/19 17:00 INR 1.48 09/30/19 17:00 APTT 29.7 SECONDS (24.3-36.9) 09/30/19 17:00 Sodium 144 mmol/L (136-145) 10/04/19 05:20 Potassium 3.9 mmol/L (3.5-5.1) 10/04/19 05:20 BUN 26 mg/dL (7-18) H 10/04/19 05:20 Creatinine 0.93 mg/dL (0.55-1.3) 10/04/19 05:20 Glucose 93 mg/dL (74-106) 10/04/19 05:20 Uric Acid 11.9 mg/dL (3.5-7.2) H D 09/30/19 17:00 Phosphorus 2.1 mg/dL (2.5-4.9) L 10/04/19 05:20 Magnesium 2.4 mg/dL (1.8-2.4) 10/04/19 05:20 Total Bilirubin 0.7 mg/dL (0.2-1.0) 10/01/19 05:31 AST 96 U/L (15-37) H 10/01/19 05:31 ALT 32 U/L (12-78) 10/01/19 05:31 Alkaline Phosphatase 253 U/L (45-117) H 10/01/19 05:31 Troponin I 0.05 ng/mL (0.0-0.045) H 10/03/19 05:01 Triglycerides 110 mg/dL (<150) 10/01/19 05:31 Cholesterol 112 mg/dL (<200) 10/01/19 05:31 HDL Cholesterol 46 mg/dL (40-60) 10/01/19 05:31 Cholesterol/HDL Ratio 2.43 10/01/19 05:31 Lipase 210 U/L (73-393) 09/30/19 17:00 Home Medications: Allopurinol 100 mg PO DAILY 09/30/19 Amiodarone HCl [Pacerone] 100 mg PO BID 09/30/19 Apixaban [Eliquis *] 2.5 mg PO BID 09/30/19 Atorvastatin Calcium [Lipitor*] 10 mg PO BEDTIME 09/30/19 Gabapentin 300 mg PO DAILY 09/30/19 Gabapentin [Gralise] 600 mg PO BEDTIME 09/30/19 Hydrocodone Bit/Acetaminophen [Hydrocodon-Acetaminophn 10-325] 1 each PO Q8H 10/19 Omeprazole 20 mg PO DAILY 09/30/19 Tamsulosin [Flomax*] 0.4 mg PO BEDTIME 09/30/19 Tizanidine [Zanaflex*] 4 mg PO TID 09/30/19 Patient Discharge Instructions: 1. Will return to senior living. 2. Patient presented with poor intake and altered mental status. Patient found to have toxic encephalopathy related to bilateral pneumonia and UTI. Patient was treated with IV antibiotic therapy and IV fluids. Patient improved. Patient found to have E coli-ESBL. PICC line was required. At discharge patient will continue with IV meropenem 1 g twice daily for total of 2 weeks to treat both infections. Patient will return to the [facility] with a PICC line in place. Recommend to recheck chest x-ray in 2-4 weeks to monitor resolution. Recommend to recheck urine culture after treatment to make sure infection has been eradicated. If negative PICC line can be removed. 3. Patient also found to have abnormal CT scan showing spiculated 2.2 cm mass to the posterior left lung. A mass to the posterior right lobe of the liver was noted along with an large lobulated left adrenal gland. Findings likely lung cancer with metastasis. Pulmonology was consulted. Pulmonology recommended no further investigation and intervention due to his chronic medical conditions and age. This was addressed in detail with family. Patient likely not a good candidate for further evaluation and treatment was addressed with family. Family agrees. Patient would likely benefit with hospice after treatment of infection and pneumonia. Family is to further discuss with other family members. This can be further addressed at the usp. Will recommend that usp discuss advanced directives with family as well. 4. Patient with acute on chronic renal failure stage 4 due to dehydration and poor oral intake. Patient received IV fluids with improvement. Renal ultrasound shows chronic disease. Renal function back to stage 4. Nephrology was consulted. Recommend no further use of nonsteroidal anti-inflammatories medications will need to be renally dosed. Recommend to recheck lab-BMP in 1-2 weeks to monitor his progress. At discharge patient will continue with allopurinol 100 mg daily. 5. Patient with underlying atrial fibrillation on chronic anti coagulation therapy, history of pacemaker defibrillator, hypertension and likely underlying diastolic CHF. Patient was previously on blood pressure medication-Norvasc, Amiloride, and Lasix. Blood pressures have been stable without medication here in the hospital. At discharge, for his hypertension will recommend to discontinue Amiloride 10 mg daily and Norvasc 5 mg daily. Recommend to monitor blood pressures closely. If blood pressures remain above 140/90 then will need to consider adding back blood pressure medication but would recommend adding MENG -inhibitor instead. At discharge, for his likely underlying diastolic CHF, will recommend to discontinue Lasix 80 mg 1 pill twice daily. Will recommend to restart at Lasix 40 mg daily instead. Will also recommend 1500 cc per day fluid restriction and low-salt diet. Will recommend to monitor daily weight, if weight increases by more than 5 lb then medication may need to be further adjusted. This can be done with the help of usp physician or cardiology. For his atrial fibrillation patient may continue with amiodarone 100 mg twice daily and Eliquis 2.5 mg twice daily for chronic anti coagulation therapy. Recommend follow up with cardiology as directed. 6. Patient with underlying BPH. At discharge patient will continue with Flomax 0.4 mg daily. 7. Patient with underlying hyperlipidemia. At discharge he will continue with Lipitor 10 mg daily. 8. Patient with chronic pain. At discharge he will continue with gabapentin 300 mg daily and gabapentin 600 mg at night. Patient will also continue with [place] as directed. Patient also takes Zanaflex as needed for muscle spasm. Further adjustment can be done by the us[facility] physician. 9. Patient with difficulty hearing with cochlear implant in place. Diet: Renal Activity: Bedrest Time spent managing pt's care (in minutes): 55
[2019-10-04] MEDS: ATORVASTATIN 10 MG TAB PO SCH (20:37)
[2019-10-04] MEDS: TAMSULOSIN 0.4 MG SR CAP PO SCH (20:37)
--- NOTE | 2019-10-05 01:01 | PN ---
Date of Progress Note: 10/04/2019 History Of Present Illness: Patient has history of chronic kidney disease, stage 3. He developed ac marty kidney injury with nonoliguric urine output. Patient was started on IV fluids to control volemia . Patient was treated for hypovolemia and renal function has stabilized with IV fluids and improved over the last several days. Patient has history of chronic kidney disease, stage 3. Urinary tract i nfection was treated with antibiotics. CT scan of the abdomen and pelvis without contrast did not sh ow hydronephrosis. Creatinine level has gradually improved. Electrolytes are stable. Hyperphosphat emia resolved with the phosphorus level improved from 5.0 to 2.1. Review of Systems: Denies fever, chills. Physical Examination: Lungs: Clear to auscultation bilaterally. Heart: S1, S2. Abdomen: Soft, benign. Extremities: Minimal edema. Impression And Plan: 1.Acute kidney injury. Renal function has improved over last 3 days. Creatinine was up to 2.97, BU N 117. Lab work showed some improvement of renal function and patient will avoid nephrotoxic medicat ions. We will continue hydration as needed. Plan is to discontinue fluid restriction. Sodium level has improved from 146 to 142. Patient was found to have severe azotemia. BUN was 117 and improved today to 26, creatinine 0.93. 2.Patient has hypertensive heart and kidney disease. Continue blood pressure medication. 3.Patient will follow up with Nephrology outpatient for history of acute kidney injury. TIFFANY/CESARL Voice ID: [id number] Report ID: [id number]
[2019-10-05 04:52] LABS: BUN Blood Urea Nitrogen 18 mg/dL (7-18); Bicarbonate 26 mmol/L (21-32); Glucose Level 95 mg/dL (74-106); Phosphorus 2.1 mg/dL (2.5-4.9); Sodium Level 141 mmol/L (136-145)
[2019-10-05] MEDS: POTASS/SODIUM PHOSPHATE 1 PKT POWD.PACK PO SCH ×3 (06:22→08:04)
[2019-10-05] MEDS: AMIODARONE HCL 200 MG TAB PO SCH (07:50)
[2019-10-05] MEDS: APIXABAN 2.5 MG TABLET PO SCH (07:50)
[2019-10-05] MEDS: allopurinoL 100 MG TAB PO SCH (07:50)
[2019-10-05] MEDS: Meropenem 1,000 MG in NA CHLORIDE 0.9% 100 ML IV SCH (07:50)
[2019-10-05] MEDS: GABAPENTIN 300 MG CAP PO SCH ×2 (07:50→07:51)
[2019-10-05 11:57] VITALS: O2SAT 93
[2019-10-05 12:22] VITALS: BP 102/57; TEMP 97.1
--- NOTE | 2019-10-06 00:21 | PN ---
Date of Progress Note: 10/05/2019 Chief Complaint: Acute on chronic kidney disease. Renal function has not improved over last several days. Patient has history of chronic kidney disease stage 3. He developed acute kidney injury with nonoliguric urine output secondary to prerenal azotemia. Patient was started on IV fluids to control volemia and to treat worsening of the renal function. CT scan of the abdomen and pelvis without contrast did not show hydronephrosis. Creatinine level has gradually improved and hyperphosphatemia resolved with phosphorous limitation. Review of Systems: Denies PND, orthopnea. Physical Examination: Lungs: Clear to auscultation bilaterally. Heart: S1, S2. Abdomen: Soft, benign. Extremities: Minimal edema. Impression And Plan: 1. Acute kidney injury. Renal function has improved over last several days. Creatinine was up to 2.97, BUN 117. Creatinine improved to 0.93 and BUN to 106. 2. Hypertensive heart and kidney disease. Continue blood pressure medication. Patient will follow up with Nephrology Clinic as an outpatient for kidney insufficiency. TIFFANY/LAUREN Voice ID: [id number] Report ID: [id number] REJI
== END 2019-10-05 14:26 | DRG 193 ==
LOC: ER 16:45 → ERHOLD 19:55 → 3RD-ICU 21:23 → 4TH 10-03 18:13
PROVIDERS: ADMIT Hospitalist; ATTEND Internal Medicine
DX: J18.9 Pneumonia, unspecified organism (principal); G93.41 Metabolic encephalopathy; N17.9 Acute kidney failure, unspecified; I48.20 Chronic atrial fibrillation, unspecified; N39.0 Urinary tract infection, site not specified; Z16.12 Extended spectrum beta lactamase (ESBL) resistance; C34.90 Malignant neoplasm of unspecified part of unspecified bronchus or lung; C78.7 Secondary malignant neoplasm of liver and intrahepatic bile duct; E86.0 Dehydration; I10 Essential (primary) hypertension; N18.3 Chronic kidney disease, stage 3 (moderate); D64.9 Anemia, unspecified; N40.0 Benign prostatic hyperplasia without lower urinary tract symptoms; R62.7 Adult failure to thrive; H91.90 Unspecified hearing loss, unspecified ear; Z79.01 Long term (current) use of anticoagulants; Z68.25 Body mass index [BMI] 25.0-25.9, adult; B96.20 Unspecified Escherichia coli [E. coli] as the cause of diseases classified elsewhere
CPT/HCPCS: 36415; 70450; 71045; 71250; 74176; 76770; 80048; 80053; 80061; 80074; 80076; 81003; 81015; 82105; 82550; 82553; 82805; 82947; 83605; 83615; 83690; 83735; 83880; 84100; 84145; 84443; 84484; 84550; 85025; 85379; 85610; 85730; 86850; 86900; 86901; 87040; 87077; 87086; 87088; 87186; 87205; 93005; 96361; 96365; 96366; 99285; J0696; J2543; J7030

== ENCOUNTER 2019-10-29 19:58 | Emergency (ER) | payer OTHER ==
[2019-10-29] MEDS ORDERED: NA CHLORIDE 0.9% 1,000 ML IV ONE (19:59)
[2019-10-29] MEDS ORDERED: Caclcium Chloride 10% INJ SYR IV ONE (19:59)
[2019-10-29] MEDS ORDERED: ATROPINE SULF 1 MG/10 ML SYR IV ONE (19:59)
[2019-10-29] MEDS ORDERED: EPINEPHrine 1 MG/10 ML SYR IV ONE (19:59)
--- NOTE | 2019-10-29 20:27 | EDPHYS ---
Physician Documentation [facility] Name: Leroy Santiago Age: 79 yrs Sex: Male : 1940 Arrival Date: 10/29/2019 Time: 20:10 Bed 3 Private MD: Shen Miner HPI: 10/29 20:18 This 79 yrs old Male presents to ER via Unassigned with complaints of CPR. bear 20:18 Preceding the arrest, the patient was dyspneic. The arrest occurred at correction. bear Pre-hospital course: The arrest was witnessed Bystanders at the scene performed CPR. EMS care prior to arrival: initiation of ACLS, intubation. The patient has not experienced similar symptoms in the past, It is unknown whether or not the patient has had similar symptoms in the past. Historical: - Allergies: 20:38 Sulfa (Sulfonamide Antibiotics); bb - Home Meds: 20:38 tizanidine 4 mg oral tab [Active]; vit C [Active]; amiodarone 100 mg Oral tab 1 tab 2 bb times per day [Active]; atorvastatin 10 mg oral tab 1 tab once daily [Active]; Eliquis 2.5 mg oral tab 1 tab 2 times per day [Active]; gabapentin 300 mg oral cap 1 cap daily [Active]; gabapentin 600 mg oral tab daily [Active]; omeprazole 20 mg Oral cpDR 1 cap once daily [Active]; Remeron 15 mg Oral tab 1 tab once daily [Active]; tamsulosin 0.4 mg oral cp24 1 cap once daily [Active]; 20:46 allopurinol 100 mg Oral tab 1 tab once daily [Active]; bb - PMHx: 20:46 Anemia; BPH; GERD; Hypertension; PRIMARY RESPIRATORY TUBERCULOSIS; Atrial Fib; bb - PSHx: 20:46 PACEMAKER PLACEMENT; bb - Immunization history:: Adult Immunizations unknown. - Coronavirus screen:: The patient has NOT traveled to [place], [place], or [place] in the past 14 days. - Family history:: not pertinent. - Code Status:: Full code. - Social history:: Smoking status: unknown. - Ebola Screening: : No symptoms or risks identified at this time. ROS: 20:19 Unable to obtain ROS due to cpr, no vitals. bear Exam: 20:19 ENT: Nares patent. No nasal discharge, no septal abnormalities noted. Tympanic bear membranes are normal and external auditory canals are clear. Oropharynx with no redness, swelling, or masses, exudates, or evidence of obstruction, uvula midline. Mucous membranes moist. Abdomen/GI: Soft, non-tender, with normal bowel sounds. No distension or tympany. No guarding or rebound. No evidence of tenderness throughout. 20:19 Eyes: Pupils: are fixed and dilated. 20:19 Neck: External neck: is normal. 20:19 Chest/axilla: Inspection: ecchymosis, that is mild, of the xyphoid area, mid-sternal area, right breast and left breast 20:19 Cardiovascular: Rate: actual rate is 0 bpm, Rhythm: asystole, Pulses: not palpable, Heart sounds: none, Edema: is not appreciated, JVD: is not appreciated. 20:19 Respiratory: Respiratory rate: 0 Vital Signs: 20:15 Temp 101.9(R); Weight 90.72 kg (R); Height 6 ft. 0 in. (182.88 cm) (R); bb 20:15 Body Mass Index 27.12 (90.72 kg, 182.88 cm) bb [place] Coma Score: 20:00 Eye Response: none(1). Verbal Response: none(1). Motor Response: none(1). Total: 3. bb MDM: 20:16 Patient medically screened. [facility] 10/29 20:17 Order name: Central Line Kit; Complete Time: 20:29 [facility] Administered Medications: 19:58 Drug: Sodium Bicarbonate 1 amp {Note: IO right tibia.} Route: IVP; Site: Other; bb 20:00 Follow up: Response: No change in condition bb 19:59 Drug: EPINEPHrine 0.1mg/mL 1:10,000 0.01 mg/kg {Note: IO right tibia.} Route: IVP; bb Site: Other; 20:00 Follow up: Response: No change in condition bb 20:00 Drug: Calcium Chloride 10% 10 ml {Note: IO right tibia.} Route: IVP; Site: Other; bb 20:03 Follow up: Response: No change in condition bb 20:03 Drug: EPINEPHrine 0.1mg/mL 1:10,000 0.01 mg/kg {Note: IO right femoral.} Route: IVP; bb Site: Other; 20:05 Follow up: Response: No change in condition bb 20:05 Drug: EPINEPHrine 0.1mg/mL 1:10,000 0.01 mg/kg Route: IVP; Site: right femoral; bb 20:07 Follow up: Response: No change in condition bb 20:06 Drug: Sodium Bicarbonate 1 amp Route: IVP; Site: right femoral; bb 20:07 Follow up: Response: No change in condition bb 20:10 Drug: EPINEPHrine 0.1mg/mL 1:10,000 0.01 mg/kg Route: IVP; Site: right femoral; bb 20:12 Follow up: Response: No adverse reaction bb 20:12 Drug: Atropine 1 mg Route: IVP; Site: right femoral; bb 20:14 Follow up: Response: No change in condition bb Disposition: Patient pronounced on 10/29/19 20:14 by Shen Lim. Impression: Respiratory arrest, Cardiac arrest. - Released to Home. Signatures: Shen Lim MD MD cha Ballard, Brenda, RN RN bb Davies, Jonathon, RN RN [id number] Corrections: (The following items were deleted from the chart) 20:27 20:26 10/29/2019 20:26 Patient pronounced on 10/29/2019 at 20:14 by Corey. bear Lim Impression: Respiratory arrest. Released to Home. bear 22:48 20:27 10/29/2019 20:26 Patient pronounced on 10/29/2019 at 20:14 by Corey. myriam Lim Impression: Respiratory arrest; Cardiac arrest. Released to Home. bear
--- NOTE | 2019-10-29 22:49 | ER ---
Nurse's Notes [facility] Name: Leroy Santiago Age: 79 yrs Sex: Male : 1940 Arrival Date: 10/29/2019 Time: 20:10 Bed 3 Private MD: Diagnosis: Respiratory arrest;Cardiac arrest Presentation: 10/29 19:55 Presenting complaint: EMS states: they were called out to [place] for report of bb patient with respiratory distress on their arrival pt had agonal respirations was hypoxic satting in the 70s and went into cardiac arrest they initiated CPR, started an IO to right tibia, gave a total of epi x 3, bicarb x 1, amiodarone 300 mg x 1 and shocked the pt x 1 for PEA, pt was intubated with 8.0 ETT tube 25 cm at the lip. Care prior to arrival: Compressions began prior to arrival. 19:55 Method Of Arrival: EMS: [facility] bb 19:55 Acuity: MIKE 1 bb 19:55 Transition of care: [place]. Onset of symptoms was October 29, 2019. Risk Assessment: bb Do you want to hurt yourself or someone else? Unable to obtain. Triage Assessment: 19:55 General: Appears pt is unresponsive and intubated with CPR in progress. Pain: Unable to bb use pain scale. Neuro: Level of Consciousness is unresponsive. Cardiovascular: Rhythm is PEA. Respiratory: Airway via oral intubation Respiratory effort is pt being bagged. Historical: - Allergies: 20:38 Sulfa (Sulfonamide Antibiotics); bb - Home Meds: 20:38 tizanidine 4 mg oral tab [Active]; vit C [Active]; amiodarone 100 mg Oral tab 1 tab 2 bb times per day [Active]; atorvastatin 10 mg oral tab 1 tab once daily [Active]; Eliquis 2.5 mg oral tab 1 tab 2 times per day [Active]; gabapentin 300 mg oral cap 1 cap daily [Active]; gabapentin 600 mg oral tab daily [Active]; omeprazole 20 mg Oral cpDR 1 cap once daily [Active]; Remeron 15 mg Oral tab 1 tab once daily [Active]; tamsulosin 0.4 mg oral cp24 1 cap once daily [Active]; 20:46 allopurinol 100 mg Oral tab 1 tab once daily [Active]; bb - PMHx: 20:46 Anemia; BPH; GERD; Hypertension; PRIMARY RESPIRATORY TUBERCULOSIS; Atrial Fib; bb - PSHx: 20:46 PACEMAKER PLACEMENT; bb - Immunization history:: Adult Immunizations unknown. - Coronavirus screen:: The patient has NOT traveled to [place], [place], or [place] in the past 14 days. - Family history:: not pertinent. - Code Status:: Full code. - Social history:: Smoking status: unknown. - Ebola Screening: : No symptoms or risks identified at this time. Screenin:00 Abuse screen: Denies threats or abuse. Nutritional screening: No deficits noted. bb Tuberculosis screening: Possible symptoms: recent fever. Assessment: 19:55 Cardiac rhythm is PEA. bb 19:55 Reassessment: Dr Lim at bedside for pt evaluation and treatment along with this bb RN, Raman Garrett RN, Eric Oneill RN, Heri RT, Madhu RT, Justice NEGRON tech. Pt is unresponsive ETT by EMS in place, CPR in progress, IO to right tibia in place and patent with fluids infusing. Pt is cyanotic, no respiratory effort, rhythm is PEA. 20:10 CPR assessment: unresponsive, no respiratory effort, intubated, Ambu ventilation. jd3 General: Appears distressed, Behavior is unresponsive. Neuro: Level of Consciousness is unresponsive. Cardiovascular: Heart tones absent Capillary refill is > 3 seconds Pulses are absent in left carotid pulse and right carotid pulse Rhythm is PEA. Respiratory: Airway via oral intubation. Derm: Skin is intact, Skin is pale, Skin temperature is cool. 20:14 Reassessment: Pt with no response to ACLS and pronounced at 2013. bb 20:16 Reassessment: Judge Guthrie notified. bb 20:40 Reassessment: [facility] notified spoke to Marimar Kruse with pt bb is not a candidate for donation due to risk of infection related to fever and diagnosis of tuberculosis. 21:33 Reassessment: Judge Guthrie at bedside no autopsy ordered pt to be released to [facility]. Vital Signs: 20:15 Temp 101.9(R); Weight 90.72 kg (R); Height 6 ft. 0 in. (182.88 cm) (R); bb 20:15 Body Mass Index 27.12 (90.72 kg, 182.88 cm) bb Julianna Coma Score: 20:00 Eye Response: none(1). Verbal Response: none(1). Motor Response: none(1). Total: 3. bb ED Course: 19:56 Patient placed in an exam room, on a stretcher, on manager monitoring, on pulse oximetry, bb pt intubated being bagged by EMS CPR in progress. 20:00 Patient has correct armband on for positive identification. bb 20:00 Assisted provider with central line placement. Set up central line tray. Triple lumen bb line placed in right femoral. Line placed by Shen Lim MD Placement verified by blood return, Dressed with Tegaderm. Maintain EMS IV. Dressing intact. IO to right tibia. 20:10 Patient arrived in ED. ds1 20:15 Shen Lim MD is Attending Physician. bear 20:24 Shen Lim MD is Pronouncing Provider. bear 20:27 Raman Garrett RN is Primary Nurse. jd3 20:30 Triage completed. bb Administered Medications: 19:58 Drug: Sodium Bicarbonate 1 amp {Note: IO right tibia.} Route: IVP; Site: Other; 20:00 Follow up: Response: No change in condition 19:59 Drug: EPINEPHrine 0.1mg/mL 1:10,000 0.01 mg/kg {Note: IO right tibia.} Route: IVP; Site: Other; 20:00 Follow up: Response: No change in condition 20:00 Drug: Calcium Chloride 10% 10 ml {Note: IO right tibia.} Route: IVP; Site: Other; 20:03 Follow up: Response: No change in condition 20:03 Drug: EPINEPHrine 0.1mg/mL 1:10,000 0.01 mg/kg {Note: IO right femoral.} Route: IVP; Site: Other; 20:05 Follow up: Response: No change in condition 20:05 Drug: EPINEPHrine 0.1mg/mL 1:10,000 0.01 mg/kg Route: IVP; Site: right femoral; bb 20:07 Follow up: Response: No change in condition 20:06 Drug: Sodium Bicarbonate 1 amp Route: IVP; Site: right femoral; 20:07 Follow up: Response: No change in condition 20:10 Drug: EPINEPHrine 0.1mg/mL 1:10,000 0.01 mg/kg Route: IVP; Site: right femoral; bb 20:12 Follow up: Response: No adverse reaction bb 20:12 Drug: Atropine 1 mg Route: IVP; Site: right femoral; bb 20:14 Follow up: Response: No change in condition bb Outcome: 20:14 Outcome Patient bb 22:48 Patient : Body to home. jd3 22:48 Condition: 22:48 Patient left the ED. jd3 Signatures: Shen Lim MD MD cha Sanford, Demi ds1 Katie Larkin, ROBERTO RN Raman Roca RN RN jd3 Corrections: (The following items were deleted from the chart) 20:35 20:10 Cardiovascular: Heart tones absent Capillary refill is > 3 seconds Pulses are jd3 absent in left carotid pulse and right carotid pulse Rhythm is asystole jd3 21:57 20:05 EPINEPHrine 0.1mg/mL 1:10,000 0.01 mg/kg IVP in Other bb bb 22:09 19:55 Cardiac rhythm is PEA bb bb
[2019-10-29 23:54] VITALS: TEMP 101.9
== END 2019-10-29 22:48 | disposition expired ==
LOC: ER 19:58
DX: I46.9 Cardiac arrest, cause unspecified (principal); K21.9 Gastro-esophageal reflux disease without esophagitis; I10 Essential (primary) hypertension; I48.91 Unspecified atrial fibrillation; Z88.2 Allergy status to sulfonamides
CPT/HCPCS: 82947; 92950; 99285; J0171; J7030